=== PATIENT | female | born 1965 ===

== ENCOUNTER 2017-06-11 16:35 | Emergency (ER) | payer MEDICAID, OTHER ==
[2017-06-11 16:39] VITALS: BMI 45.9
[2017-06-11 16:41] VITALS: TEMP 99
[2017-06-11 17:46] VITALS: PULSE 97; RESP 18; O2SAT 99
--- NOTE | 2017-06-11 18:02 | C.PDOC ---
History Of Present Illness 51 y/o female, with PMHx of anxiety, presents to ED for evaluation of anxiety. Pt states that she found her blood pressure to be elevated and had visited her PMD for the same who increased the dosage of her Losartan from 25 to 50mg. Note pt takes Wellbutrin and Klonopin. Pt states that she has appointment with her psychiatrist next month. Denies SI, HI, chest pain, palpitations, dizziness, headache, or fever. Time Seen by Provider: 06/11/17 17:26 Chief Complaint (Nursing): High Blood Pressure History Per: Patient History/Exam Limitations: no limitations Onset/Duration Of Symptoms: Days Current Symptoms Are (Timing): Still Present Suicide/Self Injury Attempted (Context): None Modifying Factor(s): None Severity: None Pain Scale Rating Of: 0 Associated Symptoms: Anxiety. denies: Suicidal Thoughts, Suicidal Plan Involuntary Hold By: None Additional History Per: Patient Past Medical History Reviewed: Historical Data, Nursing Documentation, Vital Signs Vital Signs: Last Vital Signs Temp 99.0 F 06/11/17 16:40 Pulse 97 H 06/11/17 17:45 Resp 18 06/11/17 17:45 BP 142/89 06/11/17 18:09 Pulse Ox 99 06/11/17 18:18 - Medical History PMH: Anxiety, Asthma, Depression, HTN, Hypercholesterolemia, Hypothyroidism Surgical History: Cholecystectomy Family History: States: Unknown Family Hx - Social History Hx Tobacco Use: No Hx Alcohol Use: No Hx Substance Use: No - Immunization History Hx Tetanus Toxoid Vaccination: No Hx Influenza Vaccination: Yes (04/2017) Hx Pneumococcal Vaccination: No Review Of Systems Except As Marked, All Systems Reviewed And Found Negative. Constitutional: Negative for: Fever, Chills Cardiovascular: Negative for: Chest Pain, Palpitations Respiratory: Negative for: Cough, Shortness of Breath Neurological: Negative for: Headache, Dizziness Psych: Positive for: Anxiety Physical Exam - Physical Exam Appears: Non-toxic, No Acute Distress, Other (anxious) Skin: Normal Color, Warm, Dry Head: Atraumatic, Normacephalic Eye(s): bilateral: Normal Inspection Oral Mucosa: Moist Chest: Symmetrical Cardiovascular: Rhythm Regular, No Murmur Respiratory: Normal Breath Sounds, No Rales, No Rhonchi, No Wheezing Gastrointestinal/Abdominal: Soft, No Tenderness Extremity: Normal ROM, No Pedal Edema Neurological/Psych: Oriented x3, Normal Speech ED Course And Treatment O2 Sat by Pulse Oximetry: 99 Pulse Ox Interpretation: Normal Progress Note: Pt was given Klonopin. On reassessment, patient is resting comfortably, and is in no acute distress. Patient was instructed to follow up with physician/clinic in 1-2 days for further evaluation. Disposition Counseled Patient/Family Regarding: Diagnosis, Need For Followup, Rx Given - Disposition Referrals: Karina Cohen MD [Medical Doctor] - Disposition: HOME/ ROUTINE Disposition Time: 18:00 Condition: STABLE Additional Instructions: FOLLOW UP WITH YOUR DOCTOR IN 1-2 DAYS USE MEDICATIONS DIRECTED FOLLOW UP WITH YOUR PSYCHIATRIST SCHEDULED RETURN TO ER IF YOU HAVE ANY CONCERNING SYMPTOMS Prescriptions: Clonazepam [Klonopin] 1 mg PO BID PRN #12 tab PRN Reason: Anxiety Colloidal Oatmeal [Eczema Relief] 1 appl TP TID #1 cream..g. Instructions: Eczema in Children (ED), Anxiety (ED) Forms: [employer] (Czech) Print Language: ESTONIAN - POA Present On Arrival: None - Clinical Impression Clinical Impression: Anxiety, Eczema - Scribe Statement The provider has reviewed the documentation as recorded by the Scribe Tahir Rosas All medical record entries made by the Scribe were at my direction and personally dictated by me. I have reviewed the chart and agree that the record accurately reflects my personal performance of the history, physical exam, medical decision making, and the department course for this patient. I have also personally directed, reviewed, and agree with the discharge instructions and disposition.
[2017-06-11 18:09] VITALS: BP 142/89
== END 2017-06-11 18:09 | disposition home or self-care (01) ==
LOC: C.ER 16:35
DX: F41.9 Anxiety disorder, unspecified (principal); L30.9 Dermatitis, unspecified; E78.00 Pure hypercholesterolemia, unspecified; I10 Essential (primary) hypertension; E03.9 Hypothyroidism, unspecified

== ENCOUNTER 2018-11-08 10:29 | Emergency (ER) | payer MEDICAID, OTHER ==
[2018-11-08 10:29] VITALS: BMI 45.9
[2018-11-08 10:45] VITALS: BP 106/51; TEMP 97.8
[2018-11-08 10:54] VITALS: PULSE 81; RESP 20; O2SAT 98
--- NOTE | 2018-11-08 11:13 | C.PDOC ---
History Of Present Illness 53 y/o female presents to the ER complaining of persistent rash to bilateral arms and legs which has been present for the past 10 days. Patient states that she took Prednisone 5 mg daily with some relief for 5 days. However, patient reports that she stopped taking the medications 5 days ago. She notes that she has not followed up with her PMD. Denies having fever,chills, throat swelling, difficulty breathing CP,and SOB. Time Seen by Provider: 11/08/18 10:51 Chief Complaint (Nursing): Abnormal Skin Integrity History Per: Patient History/Exam Limitations: no limitations Onset/Duration Of Symptoms: Days Current Symptoms Are (Timing): Still Present Severity: Moderate Past Medical History Reviewed: Historical Data, Nursing Documentation, Vital Signs Vital Signs: Last Vital Signs Temp 97.8 F 11/08/18 10:43 Pulse 81 11/08/18 10:43 Resp 20 11/08/18 10:43 BP 106/51 L 11/08/18 10:43 Pulse Ox 98 11/08/18 10:43 - Medical History PMH: Anxiety, Asthma, Depression, HTN, Hypercholesterolemia, Hypothyroidism Surgical History: Cholecystectomy Family History: States: No Known Family Hx - Social History Hx Tobacco Use: No Hx Alcohol Use: No Hx Substance Use: No - Immunization History Hx Tetanus Toxoid Vaccination: No Hx Influenza Vaccination: Yes (04/2017) Hx Pneumococcal Vaccination: No Review Of Systems Except As Marked, All Systems Reviewed And Found Negative. Constitutional: Negative for: Fever, Chills ENT: Negative for: Throat Swelling Cardiovascular: Negative for: Chest Pain Respiratory: Negative for: Shortness of Breath Skin: Positive for: Rash Physical Exam - Physical Exam Appears: Non-toxic, No Acute Distress Skin: Warm, Dry, Rash (rash to bilateral arms and legs) Head: Atraumatic, Normacephalic Eye(s): bilateral: Normal Inspection Nose: Normal Oral Mucosa: Moist Tongue: Normal Appearing, No Swelling Lips: Normal Appearing, No Swelling Throat: Normal, No Erythema, No Exudate Neck: Supple Chest: Symmetrical Cardiovascular: Rhythm Regular Respiratory: Normal Breath Sounds, No Rales, No Rhonchi, No Wheezing Gastrointestinal/Abdominal: Normal Exam, Soft, No Tenderness, No Guarding, No Rebound Neurological/Psych: Oriented x3, Normal Speech ED Course And Treatment O2 Sat by Pulse Oximetry: 98 (RA) Pulse Ox Interpretation: Normal Medical Decision Making Medical Decision Making: Plan: --Prednisone PO Updates: Patient has been discharged and instructed to follow up with PMD and boilermaking supervisor. Disposition - Disposition Referrals: [facility] [Outside] Disposition: HOME/ ROUTINE Disposition Time: 11:15 Condition: GOOD Additional Instructions: ANDRÉS LYON, thank you for letting us take care of you today. The emergency medical care you received today was directed at your acute symptoms. If you were prescribed any medication, please fill it and take as directed. It may take several days for your symptoms to resolve. Return to the Emergency Department if your symptoms worsen, do not improve, or if you have any other problems. Please contact your doctor or call one of the physicians/clinics you have been referred to that are listed on the Patient Visit Information form that is included in your discharge packet. Bring any paperwork you were given at discharge with you along with any medications you are taking to your follow up visit. Our treatment cannot replace ongoing medical care by a primary care provider outside of the emergency department. Thank you for allowing the [email or web address] team to be part of your care today. Follow up with your primary care doctor and a boilermaking supervisor on the list provided for re-evaluation and further management. Prescriptions: predniSONE [Prednisone] 40 mg PO DAILY #10 tab Instructions: Dermatitis Forms: [employer] (Lebanese) - Clinical Impression Clinical Impression: Dermatitis - Scribe Statement The provider has reviewed the documentation as recorded by the Manjit Henderson Provider Attestation: All medical record entries made by the Kevinibsena were at my direction and personally dictated by me. I have reviewed the chart and agree that the record accurately reflects my personal performance of the history, physical exam, medical decision making, and the department course for this patient. I have also personally directed, reviewed, and agree with the discharge instructions and disposition.
== END 2018-11-08 11:24 | disposition home or self-care (01) ==
LOC: C.ER 10:29
DX: L30.9 Dermatitis, unspecified (principal); I10 Essential (primary) hypertension; E78.00 Pure hypercholesterolemia, unspecified